=== PATIENT | female | born 1945 | race Caucasian/White ===

== ENCOUNTER 2019-08-16 19:55 | Inpatient (IN) | payer MEDICARE ==
[2019-08-16] MEDS ORDERED: HumaLOG 300 UNITS/3 ML VIAL SC PRN (23:47)
[2019-08-16] MEDS ORDERED: traMADol HCl 50 MG TAB PO PRN (23:47)
[2019-08-17] MEDS: traMADol HCl 50 MG TAB PO SCH ×4 (00:05→17:55)
[2019-08-17] MEDS: Acetaminophen 325 MG TAB PO SCH ×4 (00:06→17:57)
[2019-08-17] MEDS: Cyclobenzaprine 10 MG TAB PO PRN (00:54)
[2019-08-17] MEDS: Ibuprofen 600 MG TAB PO PRN (00:54)
[2019-08-17] MEDS: Levothyroxine Sodium 100 MCG TAB PO SCH (05:37)
[2019-08-17] MEDS ORDERED: FLU VACC TS2019-20(65YR UP)/PF 180 MCG/0.5 ML SYRINGE IM ONE (09:00)
[2019-08-17] MEDS ORDERED: Prevnar 13-Val Conj/PF 0.5 ML SYRINGE IM ONE (09:00)
[2019-08-17] MEDS: Gabapentin 100 MG CAP PO SCH ×3 (09:16→21:31)
[2019-08-17] MEDS: Metoprolol Tartrate 25 MG TAB PO SCH ×2 (09:16→21:31)
[2019-08-17] MEDS: Carbidopa/Levodopa 25-100 mg Tablet PO SCH ×3 (09:16→21:31)
[2019-08-17] MEDS: Senokot S 8.6-50 MG TAB PO SCH ×2 (09:16→21:31)
[2019-08-17] MEDS: Enoxaparin Sodium 40 MG/0.4 ML SYRINGE SC SCH (09:17)
[2019-08-17] MEDS: Aspirin Chewable 81 MG TAB PO SCH (09:17)
[2019-08-17] MEDS ORDERED: cefTRIAXone\\ROCEPHIN 1 GM VIAL IVPB SCH (20:00)
[2019-08-17] MEDS: cefTRIAXone\\ROCEPHIN 1 GM in Sodium Chloride 0.9% 100 ML IVPB SCH (21:30)
[2019-08-17] MEDS: Carbidopa/Levodopa CR 50-200 mg Tablet PO SCH (21:31)
[2019-08-18] MEDS: Acetaminophen 325 MG TAB PO SCH ×4 (00:07→17:18)
[2019-08-18] MEDS: traMADol HCl 50 MG TAB PO SCH ×4 (00:08→17:34)
[2019-08-18] MEDS: Levothyroxine Sodium 100 MCG TAB PO SCH (05:33)
[2019-08-18 05:35] LABS: Hemoglobin 10.7 g/dL (12.0-16.0); Platelet Count 218 thou/uL (130-400)
[2019-08-18] MEDS: Gabapentin 100 MG CAP PO SCH ×3 (08:39→20:55)
[2019-08-18] MEDS: Metoprolol Tartrate 25 MG TAB PO SCH ×2 (08:39→20:56)
[2019-08-18] MEDS: Senokot S 8.6-50 MG TAB PO SCH ×2 (08:39→20:55)
[2019-08-18] MEDS: Aspirin Chewable 81 MG TAB PO SCH (08:39)
[2019-08-18] MEDS: Carbidopa/Levodopa 25-100 mg Tablet PO SCH ×3 (08:39→20:56)
[2019-08-18] MEDS: Enoxaparin Sodium 40 MG/0.4 ML SYRINGE SC SCH (08:40)
[2019-08-18] MEDS: cefTRIAXone\\ROCEPHIN 1 GM in Sodium Chloride 0.9% 100 ML IVPB SCH (20:53)
[2019-08-18] MEDS: Carbidopa/Levodopa CR 50-200 mg Tablet PO SCH (20:55)
[2019-08-19] MEDS: traMADol HCl 50 MG TAB PO SCH ×5 (00:05→23:42)
[2019-08-19] MEDS: Acetaminophen 325 MG TAB PO SCH ×5 (00:05→23:42)
[2019-08-19] MEDS: Levothyroxine Sodium 100 MCG TAB PO SCH (05:22)
[2019-08-19] MEDS: Gabapentin 100 MG CAP PO SCH ×3 (09:12→21:08)
[2019-08-19] MEDS: Aspirin Chewable 81 MG TAB PO SCH (09:12)
[2019-08-19] MEDS: Metoprolol Tartrate 25 MG TAB PO SCH ×2 (09:12→21:08)
[2019-08-19] MEDS: Carbidopa/Levodopa 25-100 mg Tablet PO SCH ×3 (09:12→21:08)
[2019-08-19] MEDS: Senokot S 8.6-50 MG TAB PO SCH ×2 (09:12→21:08)
[2019-08-19] MEDS: Enoxaparin Sodium 40 MG/0.4 ML SYRINGE SC SCH (09:13)
[2019-08-19] MEDS: Cyclobenzaprine 10 MG TAB PO PRN (09:48)
[2019-08-19] MEDS: Milk Of Magnesia 30 ML UDCUP PO PRN (09:49)
[2019-08-19] MEDS: cefTRIAXone\\ROCEPHIN 1 GM in Sodium Chloride 0.9% 100 ML IVPB SCH (21:08)
[2019-08-19] MEDS: Carbidopa/Levodopa CR 50-200 mg Tablet PO SCH (21:08)
[2019-08-20] MEDS: Acetaminophen 325 MG TAB PO SCH ×3 (05:27→17:55)
[2019-08-20] MEDS: traMADol HCl 50 MG TAB PO SCH ×3 (05:28→17:54)
[2019-08-20] MEDS: Levothyroxine Sodium 100 MCG TAB PO SCH (05:28)
[2019-08-20 06:09] LABS: Hemoglobin 11.1 g/dL (12.0-16.0); Platelet Count 252 thou/uL (130-400)
[2019-08-20] MEDS: Metoprolol Tartrate 25 MG TAB PO SCH ×2 (09:10→21:12)
[2019-08-20] MEDS: Cyclobenzaprine 10 MG TAB PO PRN (09:10)
[2019-08-20] MEDS: Gabapentin 100 MG CAP PO SCH ×3 (09:11→21:12)
[2019-08-20] MEDS: Carbidopa/Levodopa 25-100 mg Tablet PO SCH ×3 (09:11→21:12)
[2019-08-20] MEDS: Aspirin Chewable 81 MG TAB PO SCH (09:11)
[2019-08-20] MEDS: Enoxaparin Sodium 40 MG/0.4 ML SYRINGE SC SCH (09:11)
[2019-08-20] MEDS: Senokot S 8.6-50 MG TAB PO SCH ×2 (09:11→21:11)
[2019-08-20] MEDS: cefTRIAXone\\ROCEPHIN 1 GM in Sodium Chloride 0.9% 100 ML IVPB SCH (21:09)
[2019-08-20] MEDS: Carbidopa/Levodopa CR 50-200 mg Tablet PO SCH (21:11)
[2019-08-20] MEDS: Ibuprofen 600 MG TAB PO PRN (21:52)
[2019-08-21] MEDS: traMADol HCl 50 MG TAB PO SCH ×4 (00:19→18:34)
[2019-08-21] MEDS: Acetaminophen 325 MG TAB PO SCH ×4 (00:21→18:35)
[2019-08-21] MEDS: Levothyroxine Sodium 100 MCG TAB PO SCH (05:40)
[2019-08-21] MEDS: Senokot S 8.6-50 MG TAB PO SCH ×2 (08:16→21:03)
[2019-08-21] MEDS: Gabapentin 100 MG CAP PO SCH ×3 (08:16→21:03)
[2019-08-21] MEDS: Metoprolol Tartrate 25 MG TAB PO SCH ×2 (08:16→21:04)
[2019-08-21] MEDS: Cyclobenzaprine 10 MG TAB PO PRN (08:16)
[2019-08-21] MEDS: Carbidopa/Levodopa 25-100 mg Tablet PO SCH ×3 (08:16→21:04)
[2019-08-21] MEDS: Enoxaparin Sodium 40 MG/0.4 ML SYRINGE SC SCH (08:17)
[2019-08-21] MEDS: Aspirin Chewable 81 MG TAB PO SCH (08:17)
[2019-08-21] MEDS: Carbidopa/Levodopa CR 50-200 mg Tablet PO SCH (21:04)
[2019-08-21] MEDS: cefTRIAXone\\ROCEPHIN 1 GM in Sodium Chloride 0.9% 100 ML IVPB SCH (21:05)
[2019-08-22] MEDS: traMADol HCl 50 MG TAB PO SCH ×4 (00:17→17:47)
[2019-08-22] MEDS: Acetaminophen 325 MG TAB PO SCH ×4 (00:17→17:47)
[2019-08-22 04:50] LABS: Hemoglobin 10.9 g/dL (12.0-16.0); Platelet Count 319 thou/uL (130-400)
[2019-08-22] MEDS: Levothyroxine Sodium 100 MCG TAB PO SCH (05:11)
[2019-08-22] MEDS: Gabapentin 100 MG CAP PO SCH ×4 (09:20→23:20)
[2019-08-22] MEDS: Senokot S 8.6-50 MG TAB PO SCH ×3 (09:20→23:20)
[2019-08-22] MEDS: Carbidopa/Levodopa 25-100 mg Tablet PO SCH ×4 (09:20→23:18)
[2019-08-22] MEDS: Aspirin Chewable 81 MG TAB PO SCH (09:21)
[2019-08-22] MEDS: Enoxaparin Sodium 40 MG/0.4 ML SYRINGE SC SCH (09:21)
[2019-08-22] MEDS: Metoprolol Tartrate 25 MG TAB PO SCH ×3 (09:21→23:20)
[2019-08-22] MEDS: Cyclobenzaprine 10 MG TAB PO PRN (09:21)
[2019-08-22] MEDS: Carbidopa/Levodopa CR 50-200 mg Tablet PO SCH ×2 (21:25→23:20)
[2019-08-23] MEDS: traMADol HCl 50 MG TAB PO SCH ×5 (00:19→23:17)
[2019-08-23] MEDS: Acetaminophen 325 MG TAB PO SCH ×5 (00:20→23:17)
[2019-08-23] MEDS ORDERED: Acetaminophen 325 MG TAB ONE (05:36)
[2019-08-23] MEDS ORDERED: traMADol HCl 50 MG TAB ONE (05:36)
[2019-08-23] MEDS ORDERED: Levothyroxine Sodium 100 MCG TAB ONE (05:37)
[2019-08-23] MEDS: Levothyroxine Sodium 100 MCG TAB PO SCH (06:00)
[2019-08-23] MEDS: Aspirin Chewable 81 MG TAB PO SCH (08:50)
[2019-08-23] MEDS: Enoxaparin Sodium 40 MG/0.4 ML SYRINGE SC SCH (08:50)
[2019-08-23] MEDS: Metoprolol Tartrate 25 MG TAB PO SCH ×2 (08:50→21:33)
[2019-08-23] MEDS: Gabapentin 100 MG CAP PO SCH ×3 (08:50→21:33)
[2019-08-23] MEDS: Carbidopa/Levodopa 25-100 mg Tablet PO SCH ×3 (08:50→21:33)
[2019-08-23] MEDS: Senokot S 8.6-50 MG TAB PO SCH ×2 (08:50→21:33)
[2019-08-23] MEDS: Carbidopa/Levodopa CR 50-200 mg Tablet PO SCH (21:33)
[2019-08-24] MEDS: Bisacodyl 5 MG TAB PO PRN (05:52)
[2019-08-24] MEDS: traMADol HCl 50 MG TAB PO SCH ×3 (05:54→18:57)
[2019-08-24] MEDS: Acetaminophen 325 MG TAB PO SCH ×3 (05:54→18:56)
[2019-08-24] MEDS: Levothyroxine Sodium 100 MCG TAB PO SCH (05:56)
[2019-08-24 05:57] LABS: Platelet Count 391 thou/uL (130-400)
[2019-08-24] MEDS: Metoprolol Tartrate 25 MG TAB PO SCH ×2 (09:31→21:05)
[2019-08-24] MEDS: Gabapentin 100 MG CAP PO SCH ×3 (09:31→21:05)
[2019-08-24] MEDS: Enoxaparin Sodium 40 MG/0.4 ML SYRINGE SC SCH (09:31)
[2019-08-24] MEDS: Aspirin Chewable 81 MG TAB PO SCH (09:31)
[2019-08-24] MEDS: Senokot S 8.6-50 MG TAB PO SCH ×2 (09:31→21:05)
[2019-08-24] MEDS: Carbidopa/Levodopa 25-100 mg Tablet PO SCH ×3 (09:32→21:05)
[2019-08-24] MEDS: Carbidopa/Levodopa CR 50-200 mg Tablet PO SCH (21:05)
[2019-08-24] MEDS: Ibuprofen 600 MG TAB PO PRN (21:09)
[2019-08-25] MEDS: traMADol HCl 50 MG TAB PO SCH ×4 (00:14→18:09)
[2019-08-25] MEDS: Acetaminophen 325 MG TAB PO SCH ×4 (00:14→18:09)
[2019-08-25] MEDS: Levothyroxine Sodium 100 MCG TAB PO SCH (05:49)
[2019-08-25] MEDS: Gabapentin 100 MG CAP PO SCH ×3 (09:42→20:45)
[2019-08-25] MEDS: Metoprolol Tartrate 25 MG TAB PO SCH ×2 (09:42→20:46)
[2019-08-25] MEDS: Senokot S 8.6-50 MG TAB PO SCH ×2 (09:42→20:45)
[2019-08-25] MEDS: Enoxaparin Sodium 40 MG/0.4 ML SYRINGE SC SCH (09:42)
[2019-08-25] MEDS: Carbidopa/Levodopa 25-100 mg Tablet PO SCH ×3 (09:43→20:45)
[2019-08-25] MEDS: Aspirin Chewable 81 MG TAB PO SCH (09:43)
[2019-08-25] MEDS: Carbidopa/Levodopa CR 50-200 mg Tablet PO SCH (20:45)
[2019-08-26] MEDS: Acetaminophen 325 MG TAB PO SCH ×4 (00:16→18:04)
[2019-08-26] MEDS: traMADol HCl 50 MG TAB PO SCH ×4 (00:17→18:04)
[2019-08-26 06:00] LABS: Hemoglobin 12.5 g/dL (12.0-16.0); Platelet Count 436 thou/uL (130-400)
[2019-08-26] MEDS: Levothyroxine Sodium 100 MCG TAB PO SCH (06:02)
[2019-08-26] MEDS: Enoxaparin Sodium 40 MG/0.4 ML SYRINGE SC SCH (09:47)
[2019-08-26] MEDS: Metoprolol Tartrate 25 MG TAB PO SCH ×2 (09:48→20:56)
[2019-08-26] MEDS: Senokot S 8.6-50 MG TAB PO SCH ×2 (09:48→20:55)
[2019-08-26] MEDS: Carbidopa/Levodopa 25-100 mg Tablet PO SCH ×3 (09:48→20:55)
[2019-08-26] MEDS: Gabapentin 100 MG CAP PO SCH ×3 (09:48→20:55)
[2019-08-26] MEDS: Aspirin Chewable 81 MG TAB PO SCH (09:48)
[2019-08-26] MEDS: Bisacodyl 5 MG TAB PO PRN (09:52)
[2019-08-26] MEDS: Carbidopa/Levodopa CR 50-200 mg Tablet PO SCH (20:55)
[2019-08-26] MEDS: Ibuprofen 600 MG TAB PO PRN (20:56)
[2019-08-27] MEDS: traMADol HCl 50 MG TAB PO SCH ×4 (00:12→17:55)
[2019-08-27] MEDS: Acetaminophen 325 MG TAB PO SCH ×4 (00:12→17:56)
[2019-08-27] MEDS: Levothyroxine Sodium 100 MCG TAB PO SCH (05:49)
[2019-08-27] MEDS: Aspirin Chewable 81 MG TAB PO SCH (09:20)
[2019-08-27] MEDS: Metoprolol Tartrate 25 MG TAB PO SCH ×2 (09:20→21:17)
[2019-08-27] MEDS: Enoxaparin Sodium 40 MG/0.4 ML SYRINGE SC SCH (09:20)
[2019-08-27] MEDS: Milk Of Magnesia 30 ML UDCUP PO PRN (09:20)
[2019-08-27] MEDS: Senokot S 8.6-50 MG TAB PO SCH ×2 (09:20→21:17)
[2019-08-27] MEDS: Gabapentin 100 MG CAP PO SCH ×3 (09:20→21:17)
[2019-08-27] MEDS: Carbidopa/Levodopa 25-100 mg Tablet PO SCH ×3 (09:21→21:17)
[2019-08-27] MEDS: Carbidopa/Levodopa CR 50-200 mg Tablet PO SCH (21:16)
[2019-08-28] MEDS: traMADol HCl 50 MG TAB PO SCH ×4 (00:02→17:25)
[2019-08-28] MEDS: Acetaminophen 325 MG TAB PO SCH ×4 (00:03→17:26)
[2019-08-28] MEDS: Levothyroxine Sodium 100 MCG TAB PO SCH (05:36)
[2019-08-28 05:51] LABS: Hemoglobin 11.9 g/dL (12.0-16.0); Platelet Count 444 thou/uL (130-400)
[2019-08-28] MEDS: Aspirin Chewable 81 MG TAB PO SCH (09:15)
[2019-08-28] MEDS: Carbidopa/Levodopa 25-100 mg Tablet PO SCH ×3 (09:15→20:56)
[2019-08-28] MEDS: Senokot S 8.6-50 MG TAB PO SCH ×2 (09:15→20:57)
[2019-08-28] MEDS: Metoprolol Tartrate 25 MG TAB PO SCH ×2 (09:15→20:56)
[2019-08-28] MEDS: Polyethylene Glycol 3350 17 GM Packet PO SCH (09:15)
[2019-08-28] MEDS: Gabapentin 100 MG CAP PO SCH ×3 (09:15→20:55)
[2019-08-28] MEDS: Enoxaparin Sodium 40 MG/0.4 ML SYRINGE SC SCH (09:16)
[2019-08-28] MEDS: Carbidopa/Levodopa CR 50-200 mg Tablet PO SCH (20:56)
[2019-08-29] MEDS: traMADol HCl 50 MG TAB PO SCH ×5 (00:13→23:41)
[2019-08-29] MEDS: Acetaminophen 325 MG TAB PO SCH ×5 (00:14→23:42)
[2019-08-29] MEDS: Levothyroxine Sodium 100 MCG TAB PO SCH (05:19)
[2019-08-29] MEDS: Gabapentin 100 MG CAP PO SCH ×3 (08:29→21:43)
[2019-08-29] MEDS: Metoprolol Tartrate 25 MG TAB PO SCH ×2 (08:29→21:45)
[2019-08-29] MEDS: Aspirin Chewable 81 MG TAB PO SCH (08:29)
[2019-08-29] MEDS: Carbidopa/Levodopa 25-100 mg Tablet PO SCH ×3 (08:29→21:45)
[2019-08-29] MEDS: Polyethylene Glycol 3350 17 GM Packet PO SCH (08:30)
[2019-08-29] MEDS: Senokot S 8.6-50 MG TAB PO SCH ×3 (08:31→21:43)
[2019-08-29] MEDS: Enoxaparin Sodium 40 MG/0.4 ML SYRINGE SC SCH (08:31)
[2019-08-29] MEDS: Carbidopa/Levodopa CR 50-200 mg Tablet PO SCH (21:44)
[2019-08-30] MEDS: traMADol HCl 50 MG TAB PO SCH ×3 (05:12→18:08)
[2019-08-30] MEDS: Acetaminophen 325 MG TAB PO SCH ×3 (05:13→18:09)
[2019-08-30] MEDS: Levothyroxine Sodium 100 MCG TAB PO SCH (05:13)
[2019-08-30 05:44] LABS: Hemoglobin 11.6 g/dL (12.0-16.0); Platelet Count 441 thou/uL (130-400)
[2019-08-30] MEDS: Polyethylene Glycol 3350 17 GM Packet PO SCH (09:17)
[2019-08-30] MEDS: Enoxaparin Sodium 40 MG/0.4 ML SYRINGE SC SCH (09:17)
[2019-08-30] MEDS: Carbidopa/Levodopa 25-100 mg Tablet PO SCH ×3 (09:18→21:02)
[2019-08-30] MEDS: Aspirin Chewable 81 MG TAB PO SCH (09:18)
[2019-08-30] MEDS: Senokot S 8.6-50 MG TAB PO SCH ×2 (09:18→21:02)
[2019-08-30] MEDS: Metoprolol Tartrate 25 MG TAB PO SCH ×2 (09:18→21:02)
[2019-08-30] MEDS: Gabapentin 100 MG CAP PO SCH ×3 (09:18→21:02)
[2019-08-30 12:01] VITALS: BMI 25.2
[2019-08-30] MEDS: Carbidopa/Levodopa CR 50-200 mg Tablet PO SCH (21:02)
[2019-08-31] MEDS: Acetaminophen 325 MG TAB PO SCH ×4 (00:49→17:42)
[2019-08-31] MEDS: traMADol HCl 50 MG TAB PO SCH ×4 (00:50→17:41)
[2019-08-31] MEDS: Levothyroxine Sodium 100 MCG TAB PO SCH (06:00)
[2019-08-31] MEDS: cloNIDine 0.1 MG TAB PO PRN (06:01)
[2019-08-31] MEDS: Polyethylene Glycol 3350 17 GM Packet PO SCH (09:16)
[2019-08-31] MEDS: Enoxaparin Sodium 40 MG/0.4 ML SYRINGE SC SCH (09:17)
[2019-08-31] MEDS: Carbidopa/Levodopa 25-100 mg Tablet PO SCH ×3 (09:18→22:35)
[2019-08-31] MEDS: Gabapentin 100 MG CAP PO SCH ×3 (09:18→22:35)
[2019-08-31] MEDS: Aspirin Chewable 81 MG TAB PO SCH (09:18)
[2019-08-31] MEDS: Metoprolol Tartrate 25 MG TAB PO SCH ×2 (09:18→22:34)
[2019-08-31] MEDS: Senokot S 8.6-50 MG TAB PO SCH ×2 (09:18→22:34)
[2019-08-31] MEDS: Carbidopa/Levodopa CR 50-200 mg Tablet PO SCH (22:35)
[2019-09-01] MEDS: Acetaminophen 325 MG TAB PO SCH ×5 (00:20→23:53)
[2019-09-01] MEDS: traMADol HCl 50 MG TAB PO SCH ×5 (00:20→23:54)
[2019-09-01 04:48] LABS: Hemoglobin 11.7 g/dL (12.0-16.0); Platelet Count 391 thou/uL (130-400)
[2019-09-01] MEDS: Levothyroxine Sodium 100 MCG TAB PO SCH (04:59)
[2019-09-01] MEDS: Senokot S 8.6-50 MG TAB PO SCH ×2 (09:27→20:52)
[2019-09-01] MEDS: Aspirin Chewable 81 MG TAB PO SCH (09:27)
[2019-09-01] MEDS: Metoprolol Tartrate 25 MG TAB PO SCH ×2 (09:27→20:53)
[2019-09-01] MEDS: Carbidopa/Levodopa 25-100 mg Tablet PO SCH ×3 (09:27→20:53)
[2019-09-01] MEDS: Gabapentin 100 MG CAP PO SCH ×3 (09:28→20:53)
[2019-09-01] MEDS: Polyethylene Glycol 3350 17 GM Packet PO SCH (09:28)
[2019-09-01] MEDS: Enoxaparin Sodium 40 MG/0.4 ML SYRINGE SC SCH (09:31)
[2019-09-01] MEDS: Carbidopa/Levodopa CR 50-200 mg Tablet PO SCH (20:52)
[2019-09-02] MEDS: Acetaminophen 325 MG TAB PO SCH ×3 (05:11→17:52)
[2019-09-02] MEDS: traMADol HCl 50 MG TAB PO SCH ×3 (05:11→17:52)
[2019-09-02] MEDS: Levothyroxine Sodium 100 MCG TAB PO SCH (05:12)
[2019-09-02] MEDS: Carbidopa/Levodopa 25-100 mg Tablet PO SCH ×3 (09:54→20:29)
[2019-09-02] MEDS: Metoprolol Tartrate 25 MG TAB PO SCH ×2 (09:54→20:29)
[2019-09-02] MEDS: Gabapentin 100 MG CAP PO SCH ×3 (09:54→20:29)
[2019-09-02] MEDS: Senokot S 8.6-50 MG TAB PO SCH ×2 (09:54→20:29)
[2019-09-02] MEDS: Aspirin Chewable 81 MG TAB PO SCH (09:54)
[2019-09-02] MEDS: Enoxaparin Sodium 40 MG/0.4 ML SYRINGE SC SCH (09:55)
[2019-09-02] MEDS: Polyethylene Glycol 3350 17 GM Packet PO SCH (09:55)
[2019-09-02] MEDS: Carbidopa/Levodopa CR 50-200 mg Tablet PO SCH (20:29)
[2019-09-03] MEDS: traMADol HCl 50 MG TAB PO SCH ×4 (00:42→17:21)
[2019-09-03] MEDS: Acetaminophen 325 MG TAB PO SCH ×4 (00:43→17:20)
[2019-09-03] MEDS: Levothyroxine Sodium 100 MCG TAB PO SCH (05:28)
[2019-09-03] MEDS: Aspirin Chewable 81 MG TAB PO SCH (09:19)
[2019-09-03] MEDS: Polyethylene Glycol 3350 17 GM Packet PO SCH (09:19)
[2019-09-03] MEDS: Senokot S 8.6-50 MG TAB PO SCH ×2 (09:19→20:33)
[2019-09-03] MEDS: Metoprolol Tartrate 25 MG TAB PO SCH ×2 (09:19→20:33)
[2019-09-03] MEDS: Gabapentin 100 MG CAP PO SCH ×3 (09:19→20:33)
[2019-09-03] MEDS: Enoxaparin Sodium 40 MG/0.4 ML SYRINGE SC SCH (09:19)
[2019-09-03] MEDS: Carbidopa/Levodopa 25-100 mg Tablet PO SCH ×3 (09:19→20:33)
[2019-09-03] MEDS: Carbidopa/Levodopa CR 50-200 mg Tablet PO SCH (20:33)
[2019-09-04] MEDS: Acetaminophen 325 MG TAB PO SCH ×4 (00:17→17:54)
[2019-09-04] MEDS: traMADol HCl 50 MG TAB PO SCH ×4 (00:18→17:56)
[2019-09-04] MEDS: Levothyroxine Sodium 100 MCG TAB PO SCH (06:40)
[2019-09-04] MEDS: Carbidopa/Levodopa 25-100 mg Tablet PO SCH ×3 (08:48→22:19)
[2019-09-04] MEDS: Metoprolol Tartrate 25 MG TAB PO SCH ×2 (08:48→22:19)
[2019-09-04] MEDS: Gabapentin 100 MG CAP PO SCH ×3 (08:48→22:19)
[2019-09-04] MEDS: Enoxaparin Sodium 40 MG/0.4 ML SYRINGE SC SCH (08:48)
[2019-09-04] MEDS: Senokot S 8.6-50 MG TAB PO SCH ×2 (08:48→22:19)
[2019-09-04] MEDS: Polyethylene Glycol 3350 17 GM Packet PO SCH (08:48)
[2019-09-04] MEDS: Aspirin Chewable 81 MG TAB PO SCH (08:48)
[2019-09-04] MEDS: Carbidopa/Levodopa CR 50-200 mg Tablet PO SCH (22:19)
[2019-09-05] MEDS: traMADol HCl 50 MG TAB PO SCH ×4 (00:26→17:44)
[2019-09-05] MEDS: Acetaminophen 325 MG TAB PO SCH ×4 (00:49→17:44)
[2019-09-05] MEDS: Levothyroxine Sodium 100 MCG TAB PO SCH (05:09)
[2019-09-05] MEDS: Polyethylene Glycol 3350 17 GM Packet PO SCH (08:48)
[2019-09-05] MEDS: Aspirin Chewable 81 MG TAB PO SCH (08:48)
[2019-09-05] MEDS: Metoprolol Tartrate 25 MG TAB PO SCH ×2 (08:49→21:49)
[2019-09-05] MEDS: Carbidopa/Levodopa 25-100 mg Tablet PO SCH ×3 (08:49→21:49)
[2019-09-05] MEDS: Senokot S 8.6-50 MG TAB PO SCH ×2 (08:49→21:49)
[2019-09-05] MEDS: Enoxaparin Sodium 40 MG/0.4 ML SYRINGE SC SCH (08:49)
[2019-09-05] MEDS: Gabapentin 100 MG CAP PO SCH ×3 (08:49→21:49)
[2019-09-05] MEDS: Carbidopa/Levodopa CR 50-200 mg Tablet PO SCH (21:49)
[2019-09-06] MEDS: traMADol HCl 50 MG TAB PO SCH ×4 (00:38→17:26)
[2019-09-06] MEDS: Acetaminophen 325 MG TAB PO SCH ×4 (00:38→17:27)
[2019-09-06] MEDS: Levothyroxine Sodium 100 MCG TAB PO SCH (05:09)
[2019-09-06] MEDS: Aspirin Chewable 81 MG TAB PO SCH (09:47)
[2019-09-06] MEDS: Gabapentin 100 MG CAP PO SCH ×3 (09:47→20:50)
[2019-09-06] MEDS: Metoprolol Tartrate 25 MG TAB PO SCH ×2 (09:47→20:50)
[2019-09-06] MEDS: Carbidopa/Levodopa 25-100 mg Tablet PO SCH ×3 (09:48→20:50)
[2019-09-06] MEDS: Enoxaparin Sodium 40 MG/0.4 ML SYRINGE SC SCH (09:48)
[2019-09-06] MEDS: Polyethylene Glycol 3350 17 GM Packet PO SCH (09:48)
[2019-09-06] MEDS: Senokot S 8.6-50 MG TAB PO SCH ×2 (09:48→20:50)
[2019-09-06] MEDS: Ondansetron ODT 4 MG TAB PO PRN (16:27)
[2019-09-06] MEDS: Bisacodyl 5 MG TAB PO PRN (16:29)
[2019-09-06] MEDS: Carbidopa/Levodopa CR 50-200 mg Tablet PO SCH (20:50)
[2019-09-07] MEDS: Acetaminophen 325 MG TAB PO SCH ×4 (00:07→17:21)
[2019-09-07] MEDS: traMADol HCl 50 MG TAB PO SCH ×4 (00:07→17:19)
[2019-09-07] MEDS: Levothyroxine Sodium 100 MCG TAB PO SCH (05:29)
[2019-09-07 05:56] LABS: Hemoglobin 13.1 g/dL (12.0-16.0); Platelet Count 282 thou/uL (130-400)
[2019-09-07 08:00] LABS: Red Blood Cell (RBC) Count 5.12 mill/uL (4.20-5.40); White Blood Cell (WBC) Count 7.8 thou/uL (4.8-10.8)
[2019-09-07 08:01] LABS: Mean Corpuscular Hemoglobin 25.6 pg (27.0-31.0); Mean Corpuscular Volume 85.9 fL (78.0-98.0); Mean Platelet Volume 7.1 fL (7.4-10.4)
[2019-09-07 08:03] LABS: Mean Corpuscular HGB CONC 29.8 g/dL (32.0-36.0)
[2019-09-07 08:48] LABS: Eosinophils 2 % (0-10); Lymphocytes 23 % (21-51); MDiff Complete? YES; Monocytes 9 % (0-10); Neutrophil 66 % (42-75); Ovalocytes SLIGHT = 2-5 cells (100X) (0-1/hpf); Platelet Morphology Comment Appears Adequate
[2019-09-07] MEDS: Metoprolol Tartrate 25 MG TAB PO SCH ×2 (09:33→20:28)
[2019-09-07] MEDS: Enoxaparin Sodium 40 MG/0.4 ML SYRINGE SC SCH (09:33)
[2019-09-07] MEDS: Gabapentin 100 MG CAP PO SCH ×3 (09:33→20:28)
[2019-09-07] MEDS: Carbidopa/Levodopa 25-100 mg Tablet PO SCH ×3 (09:33→20:28)
[2019-09-07] MEDS: Senokot S 8.6-50 MG TAB PO SCH ×2 (09:33→20:28)
[2019-09-07] MEDS: Aspirin Chewable 81 MG TAB PO SCH (09:33)
[2019-09-07] MEDS: Polyethylene Glycol 3350 17 GM Packet PO SCH (09:33)
[2019-09-07] MEDS: Milk Of Magnesia 30 ML UDCUP PO PRN (09:34)
[2019-09-07] MEDS: Carbidopa/Levodopa CR 50-200 mg Tablet PO SCH (20:28)
[2019-09-08] MEDS: traMADol HCl 50 MG TAB PO SCH ×3 (00:36→13:50)
[2019-09-08] MEDS: Acetaminophen 325 MG TAB PO SCH ×3 (00:37→13:48)
[2019-09-08] MEDS: Levothyroxine Sodium 100 MCG TAB PO SCH (05:40)
[2019-09-08] MEDS: Aspirin Chewable 81 MG TAB PO SCH (08:18)
[2019-09-08] MEDS: Gabapentin 100 MG CAP PO SCH ×3 (08:18→21:08)
[2019-09-08] MEDS: Metoprolol Tartrate 25 MG TAB PO SCH ×2 (08:19→21:08)
[2019-09-08] MEDS: Polyethylene Glycol 3350 17 GM Packet PO SCH (08:19)
[2019-09-08] MEDS: Enoxaparin Sodium 40 MG/0.4 ML SYRINGE SC SCH (08:19)
[2019-09-08] MEDS: Senokot S 8.6-50 MG TAB PO SCH ×2 (08:19→21:08)
[2019-09-08] MEDS: Carbidopa/Levodopa 25-100 mg Tablet PO SCH ×3 (08:19→21:08)
[2019-09-08] MEDS: Acetaminophen 325 MG TAB PO PRN (21:06)
[2019-09-08] MEDS: traMADol HCl 50 MG TAB PO PRN (21:07)
[2019-09-08] MEDS: Carbidopa/Levodopa CR 50-200 mg Tablet PO SCH (21:08)
[2019-09-09] MEDS: Levothyroxine Sodium 100 MCG TAB PO SCH (06:00)
[2019-09-09] MEDS: Acetaminophen 325 MG TAB PO PRN ×2 (09:38→21:34)
[2019-09-09] MEDS: traMADol HCl 50 MG TAB PO PRN (09:39)
[2019-09-09] MEDS: Aspirin Chewable 81 MG TAB PO SCH (09:40)
[2019-09-09] MEDS: Enoxaparin Sodium 40 MG/0.4 ML SYRINGE SC SCH (09:40)
[2019-09-09] MEDS: Gabapentin 100 MG CAP PO SCH ×3 (09:40→21:34)
[2019-09-09] MEDS: Carbidopa/Levodopa 25-100 mg Tablet PO SCH ×3 (09:40→21:34)
[2019-09-09] MEDS: Metoprolol Tartrate 25 MG TAB PO SCH ×2 (09:40→21:34)
[2019-09-09] MEDS: Polyethylene Glycol 3350 17 GM Packet PO SCH (09:40)
[2019-09-09] MEDS: Senokot S 8.6-50 MG TAB PO SCH ×2 (09:40→21:34)
[2019-09-09] MEDS: Carbidopa/Levodopa CR 50-200 mg Tablet PO SCH (21:34)
[2019-09-10] MEDS: Levothyroxine Sodium 100 MCG TAB PO SCH (06:53)
[2019-09-10] MEDS: Senokot S 8.6-50 MG TAB PO SCH ×2 (09:26→23:19)
[2019-09-10] MEDS: Aspirin Chewable 81 MG TAB PO SCH (09:26)
[2019-09-10] MEDS: Gabapentin 100 MG CAP PO SCH ×3 (09:26→21:01)
[2019-09-10] MEDS: Metoprolol Tartrate 25 MG TAB PO SCH ×2 (09:26→21:01)
[2019-09-10] MEDS: Carbidopa/Levodopa 25-100 mg Tablet PO SCH ×3 (09:26→21:01)
[2019-09-10] MEDS: Polyethylene Glycol 3350 17 GM Packet PO SCH (09:27)
[2019-09-10] MEDS: Enoxaparin Sodium 40 MG/0.4 ML SYRINGE SC SCH (09:27)
--- NOTE | 2019-09-10 14:13 | HP ---
HISTORY OF PRESENT ILLNESS: The patient is a 74-year-old white female with a multiyear history of insulin-dependent diabetes mellitus type 1 and history of frequent UTIs. The patient recently was treated with urinary tract infection with oral antibiotics. She failed outpatient therapy and apparently had an exacerbation of her UTI with weakness and fell causing multiple fractures. She developed a thoracic fracture at T2, which was evaluated by Neurosurgery as well as a left scapular fracture evaluated by Dr. Calero, orthopedic surgeon and multiple rib fractures. During her hospitalization, she was found to be in atrial fibrillation with rapid ventricular response rate, which required treatment as well. During her acute hospital stay, the patient also is insulin-dependent diabetic and was maintained on her insulin pump. Due to her significant injuries, she required extensive physical and occupational therapy and was deemed stable to be transferred to [facility] on August 16, 2019. To continue physical therapy, occupational therapy, she will continue a TLSO brace for her back when she is ambulatory and a sling p.r.n. for the left scapular fracture. PAST MEDICAL HISTORY: Significant for: 1. History of frequent UTIs. 2. History of type 1 diabetes, insulin dependent. 3. History of atrial fibrillation, not a candidate for anticoagulation. 4. Hypertension. 5. Hypothyroidism. 6. History of Parkinson disease. 7. History of recurrent falls with poor gait and balance secondary to multifactorial issues. PAST SURGICAL HISTORY: Significant for tonsillectomy. MEDICATIONS: The patient's home medications included: 1. Sinemet. 2. She is on an insulin pump. 3. She is on Synthroid. 4. Metoprolol. FAMILY HISTORY: The patient has a family history of cardiac disease and coronary artery disease. SOCIAL HISTORY: The patient resides in her home in [facility] with her . She has grown children, who live in the area. She denies any alcohol, tobacco, or other social drug use. She does have some difficulty with ambulation secondary to dizziness and uses a walker p.r.n. PHYSICAL EXAMINATION: GENERAL: Elderly white female, alert, oriented x3, in no obvious distress other than pain with range of motion of the left shoulder. VITAL SIGNS: Blood pressure was 138/68, respiratory rate was 20, pulse was in the high 80s. HEENT: Atraumatic, normocephalic. Extraocular movements are intact. Pupils are equal, round, reactive to light and accommodation. Oropharynx, mucous membranes are moist. No exudate, discharge, or lesions. NECK: Supple. No masses palpated. No bruits auscultated. CHEST: With decreased breath sounds. HEART: With a regular rate and rhythm with multiple frequent ectopic beats. ABDOMEN: Soft. Bowel sounds positive in all 4 quadrants. EXTREMITIES: There was some tenderness to palpation in the back area, in the mid thoracic and lower thoracic area. There was pain with range of motion of left shoulder in the posterior shoulder area. There were multiple petechiae noted to the skin of both upper and lower extremities. ASSESSMENT AND PLAN: 1. Status post thoracic fracture. The patient will be kept in her back brace as recommended by Neurosurgery with a followup outpatient evaluation with Neurosurgery. 2. Left scapular fracture and multiple rib fractures. The patient will continue range of motion exercises to the left upper extremity as pain tolerates. We will continue the patient to be on tramadol and Tylenol routine and p.r.n. for breakthrough pain. 3. History of atrial fibrillation. The patient was not a candidate for long-term anticoagulation, but due to her mainly bedbound status and the fact that she will be monitored closely. We will place the patient on Lovenox for deep venous thrombosis prophylaxis, which will also help prevent for any embolic events. 4. Hypertension. We will continue the patient on her routine blood pressure medications with clonidine p.r.n. for elevated blood pressure and continue the patient on metoprolol. 5. Hypothyroidism. The patient will continue on levothyroxine 100 mcg daily. 6. Insulin-dependent diabetes mellitus. The patient is on insulin pump. She has a regimen that manages her blood sugar very well. She will continue that with the home dosing. 7. Parkinson disease. The patient will continue on her routine carbidopa/levodopa one tab p.o. t.i.d. and half a tablet q.h.s. 8. Pain, multifactorial due to the fractures above. The patient will continue Flexeril p.r.n. pain 5 mg t.i.d. as well as Tylenol and tramadol p.r.n. and routine to continue her pain control. 9. Disposition. The patient will likely have a prolonged hospital stay due to her multiple comorbidities and her multiple fractures. I expect probably one month or possibly greater of fpc. Order occupational therapy and physical therapy to help the patient with activities of daily living, increased strength, and gait. She is a high risk for recurrent urinary tract infection. We will use a PureWick catheter at night to help with any incontinence and hopefully she will become more ambulatory and would be able to use a bedside commode. We will continue to watch her volume status closely. Job ID: [id number]
[2019-09-10] MEDS: Carbidopa/Levodopa CR 50-200 mg Tablet PO SCH (21:01)
[2019-09-11] MEDS: Levothyroxine Sodium 100 MCG TAB PO SCH (06:20)
[2019-09-11] MEDS: Ibuprofen 600 MG TAB PO PRN (06:20)
[2019-09-11] MEDS: Aspirin Chewable 81 MG TAB PO SCH (09:22)
[2019-09-11] MEDS: Senokot S 8.6-50 MG TAB PO SCH ×2 (09:22→21:42)
[2019-09-11] MEDS: Carbidopa/Levodopa 25-100 mg Tablet PO SCH ×3 (09:22→21:42)
[2019-09-11] MEDS: Enoxaparin Sodium 40 MG/0.4 ML SYRINGE SC SCH (09:23)
[2019-09-11] MEDS: Gabapentin 100 MG CAP PO SCH ×3 (09:23→21:41)
[2019-09-11] MEDS: Metoprolol Tartrate 25 MG TAB PO SCH ×2 (09:23→21:30)
[2019-09-11] MEDS: Polyethylene Glycol 3350 17 GM Packet PO SCH (09:23)
[2019-09-11] MEDS: Carbidopa/Levodopa CR 50-200 mg Tablet PO SCH (21:41)
[2019-09-11] MEDS: traMADol HCl 50 MG TAB PO PRN (21:41)
[2019-09-11] MEDS: Acetaminophen 325 MG TAB PO PRN (21:41)
[2019-09-12] MEDS: Levothyroxine Sodium 100 MCG TAB PO SCH (06:36)
[2019-09-12] MEDS: Metoprolol Tartrate 25 MG TAB PO SCH ×2 (08:46→22:21)
[2019-09-12] MEDS: Gabapentin 100 MG CAP PO SCH ×3 (08:46→22:20)
[2019-09-12] MEDS: Enoxaparin Sodium 40 MG/0.4 ML SYRINGE SC SCH (08:47)
[2019-09-12] MEDS: Carbidopa/Levodopa 25-100 mg Tablet PO SCH ×3 (08:47→22:20)
[2019-09-12] MEDS: Aspirin Chewable 81 MG TAB PO SCH (08:47)
[2019-09-12] MEDS: Polyethylene Glycol 3350 17 GM Packet PO SCH (08:47)
[2019-09-12] MEDS: Senokot S 8.6-50 MG TAB PO SCH ×2 (08:48→22:21)
[2019-09-12] MEDS: traMADol HCl 50 MG TAB PO PRN (17:18)
[2019-09-12] MEDS: Carbidopa/Levodopa CR 50-200 mg Tablet PO SCH (22:20)
[2019-09-12] MEDS: Acetaminophen 325 MG TAB PO PRN (22:20)
[2019-09-13] MEDS: Levothyroxine Sodium 100 MCG TAB PO SCH (06:03)
[2019-09-13] MEDS: Acetaminophen 325 MG TAB PO PRN (07:24)
[2019-09-13] MEDS: Carbidopa/Levodopa 25-100 mg Tablet PO SCH ×3 (08:33→21:56)
[2019-09-13] MEDS: Gabapentin 100 MG CAP PO SCH ×3 (08:33→21:56)
[2019-09-13] MEDS: Metoprolol Tartrate 25 MG TAB PO SCH ×2 (08:33→21:56)
[2019-09-13] MEDS: Polyethylene Glycol 3350 17 GM Packet PO SCH (08:33)
[2019-09-13] MEDS: Senokot S 8.6-50 MG TAB PO SCH ×2 (08:33→21:56)
[2019-09-13] MEDS: Aspirin Chewable 81 MG TAB PO SCH (08:33)
[2019-09-13] MEDS: Enoxaparin Sodium 40 MG/0.4 ML SYRINGE SC SCH (08:34)
[2019-09-13] MEDS: Ondansetron ODT 4 MG TAB PO PRN (10:34)
[2019-09-13] MEDS ORDERED: traMADol HCl 50 MG TAB PO PRN (12:30)
[2019-09-13] MEDS: Carbidopa/Levodopa CR 50-200 mg Tablet PO SCH (21:56)
[2019-09-14] MEDS: Levothyroxine Sodium 100 MCG TAB PO SCH (05:15)
[2019-09-14] MEDS: Carbidopa/Levodopa 25-100 mg Tablet PO SCH ×3 (09:49→21:44)
[2019-09-14] MEDS: Aspirin Chewable 81 MG TAB PO SCH (09:49)
[2019-09-14] MEDS: Senokot S 8.6-50 MG TAB PO SCH ×2 (09:49→21:44)
[2019-09-14] MEDS: Gabapentin 100 MG CAP PO SCH ×3 (09:49→21:44)
[2019-09-14] MEDS: Polyethylene Glycol 3350 17 GM Packet PO SCH (09:50)
[2019-09-14] MEDS: Metoprolol Tartrate 25 MG TAB PO SCH ×2 (09:50→21:43)
[2019-09-14] MEDS: Enoxaparin Sodium 40 MG/0.4 ML SYRINGE SC SCH (09:50)
[2019-09-14] MEDS: Carbidopa/Levodopa CR 50-200 mg Tablet PO SCH (21:45)
[2019-09-15] MEDS: Acetaminophen 325 MG TAB PO PRN (02:49)
[2019-09-15] MEDS: Levothyroxine Sodium 100 MCG TAB PO SCH (05:11)
[2019-09-15] MEDS: Enoxaparin Sodium 40 MG/0.4 ML SYRINGE SC SCH (09:46)
[2019-09-15] MEDS: Polyethylene Glycol 3350 17 GM Packet PO SCH (09:46)
[2019-09-15] MEDS: Carbidopa/Levodopa 25-100 mg Tablet PO SCH ×3 (09:47→21:14)
[2019-09-15] MEDS: Senokot S 8.6-50 MG TAB PO SCH ×2 (09:48→21:14)
[2019-09-15] MEDS: Metoprolol Tartrate 25 MG TAB PO SCH ×2 (09:48→21:14)
[2019-09-15] MEDS: Gabapentin 100 MG CAP PO SCH ×3 (09:48→21:15)
[2019-09-15] MEDS: Aspirin Chewable 81 MG TAB PO SCH (09:48)
[2019-09-15] MEDS: Carbidopa/Levodopa CR 50-200 mg Tablet PO SCH (21:14)
[2019-09-16] MEDS: Levothyroxine Sodium 100 MCG TAB PO SCH (05:19)
[2019-09-16] MEDS: Acetaminophen 325 MG TAB PO PRN (09:09)
[2019-09-16] MEDS: Carbidopa/Levodopa 25-100 mg Tablet PO SCH ×3 (09:09→21:36)
[2019-09-16] MEDS: Metoprolol Tartrate 25 MG TAB PO SCH ×2 (09:09→21:36)
[2019-09-16] MEDS: Gabapentin 100 MG CAP PO SCH ×3 (09:09→21:36)
[2019-09-16] MEDS: Aspirin Chewable 81 MG TAB PO SCH (09:09)
[2019-09-16] MEDS: Senokot S 8.6-50 MG TAB PO SCH ×2 (09:09→21:36)
[2019-09-16] MEDS: Polyethylene Glycol 3350 17 GM Packet PO SCH (09:10)
[2019-09-16] MEDS: Enoxaparin Sodium 40 MG/0.4 ML SYRINGE SC SCH (09:10)
[2019-09-16] MEDS: Carbidopa/Levodopa CR 50-200 mg Tablet PO SCH (21:36)
[2019-09-17] MEDS: Levothyroxine Sodium 100 MCG TAB PO SCH (05:57)
[2019-09-17] MEDS: Senokot S 8.6-50 MG TAB PO SCH ×2 (08:31→21:17)
[2019-09-17] MEDS: Gabapentin 100 MG CAP PO SCH ×3 (08:31→21:12)
[2019-09-17] MEDS: Metoprolol Tartrate 25 MG TAB PO SCH ×2 (08:31→21:12)
[2019-09-17] MEDS: Aspirin Chewable 81 MG TAB PO SCH (08:31)
[2019-09-17] MEDS: Polyethylene Glycol 3350 17 GM Packet PO SCH (08:32)
[2019-09-17] MEDS: Carbidopa/Levodopa 25-100 mg Tablet PO SCH ×3 (08:32→21:11)
[2019-09-17] MEDS: Acetaminophen 325 MG TAB PO PRN (08:32)
[2019-09-17] MEDS: Enoxaparin Sodium 40 MG/0.4 ML SYRINGE SC SCH (08:32)
[2019-09-17] MEDS: Carbidopa/Levodopa CR 50-200 mg Tablet PO SCH (21:11)
[2019-09-18] MEDS: Levothyroxine Sodium 100 MCG TAB PO SCH (05:54)
[2019-09-18] MEDS: Carbidopa/Levodopa 25-100 mg Tablet PO SCH ×3 (09:41→21:07)
[2019-09-18] MEDS: Acetaminophen 325 MG TAB PO PRN (09:41)
[2019-09-18] MEDS: Aspirin Chewable 81 MG TAB PO SCH (09:41)
[2019-09-18] MEDS: Senokot S 8.6-50 MG TAB PO SCH ×2 (09:41→21:07)
[2019-09-18] MEDS: Metoprolol Tartrate 25 MG TAB PO SCH ×2 (09:41→21:07)
[2019-09-18] MEDS: Polyethylene Glycol 3350 17 GM Packet PO SCH (09:41)
[2019-09-18] MEDS: Enoxaparin Sodium 40 MG/0.4 ML SYRINGE SC SCH (09:42)
[2019-09-18] MEDS: Gabapentin 100 MG CAP PO SCH ×3 (09:42→21:06)
[2019-09-18] MEDS: Carbidopa/Levodopa CR 50-200 mg Tablet PO SCH (21:07)
[2019-09-19] MEDS: cloNIDine 0.1 MG TAB PO PRN (06:19)
[2019-09-19] MEDS: Levothyroxine Sodium 100 MCG TAB PO SCH (06:20)
[2019-09-19] MEDS: Aspirin Chewable 81 MG TAB PO SCH (08:37)
[2019-09-19] MEDS: Metoprolol Tartrate 25 MG TAB PO SCH (08:37)
[2019-09-19] MEDS: Acetaminophen 325 MG TAB PO PRN (08:37)
[2019-09-19] MEDS: Polyethylene Glycol 3350 17 GM Packet PO SCH (08:38)
[2019-09-19] MEDS: Senokot S 8.6-50 MG TAB PO SCH (08:38)
[2019-09-19] MEDS: Carbidopa/Levodopa 25-100 mg Tablet PO SCH ×2 (08:38→14:11)
[2019-09-19 17:47] VITALS: BP 133/61; TEMP 98.5
--- NOTE | 2019-09-21 09:50 | DIS ---
DATE OF ADMISSION: 08/16/2019 DATE OF DISCHARGE: 09/19/2019 ADMISSION DIAGNOSES: Status post fall with resultant thoracic vertebral fracture, left scapular fracture and multiple rib fractures. SECONDARY DIAGNOSES: Insulin-dependent diabetes mellitus, hypertension, hypothyroidism, history of atrial fibrillation, and Parkinson disease. PROCEDURES: None. HOSPITAL COURSE: This is a 74-year-old female, who sustained a fall and subsequently developed fractures involving her thoracic spine, left scapula and multiple ribs. She was evaluated at [facility] in [place] by Neurosurgery and Orthopedic Surgery. The patient was stabilized and advised to use a TLSO brace for her back when she is ambulatory and a sling p.r.n. for the left scapular fracture. During her stay there, she did have a complication related to atrial fibrillation with RVR, which was effectively treated. She transitioned to [facility] in [place] to participate with physical therapy and occupational therapy secondary to her deconditioned state and inability to care for herself at home. She was resumed on her usual medications with insulin pump managed by her family members. She has improved enough in her functional status to be able to return home and has been set up with [facility] for further therapy. DISPOSITION: The patient was discharged home to live with family members and will have [facility] for further physical therapy and occupational therapy. She may follow up with Dr. Calero, Orthopedic Surgery and Neurosurgery as advised. DISCHARGE MEDICATIONS: Include; 1. Levothyroxine 100 mcg p.o. daily. 2. Carbidopa/levodopa 25/100 t.i.d. and 50/200 half tablet at bedtime. 3. Clonidine 0.1 mg q.6 hours p.r.n. 4. Cyclobenzaprine 5 mg t.i.d. p.r.n. 5. Motrin 600 mg q.8 hours p.r.n. 6. Insulin pump. 7. Metoprolol tartrate 25 mg b.i.d. 8. Zofran 4 mg q.8 hours p.r.n. 9. Protonix 40 mg daily. 10. MiraLAX 17 g daily. 11. Senokot 1 tab b.i.d. Job ID: [id number] [facility]
== END 2019-09-19 17:40 | disposition home or self-care (01) | DRG 561 ==
LOC: BURMED 19:55
PROVIDERS: ADMIT Family Medicine; ATTEND Family Medicine
DX: S22.009D Unspecified fracture of unspecified thoracic vertebra, subsequent encounter for fracture with routine healing (principal); E10.9 Type 1 diabetes mellitus without complications; Z79.4 Long term (current) use of insulin; I10 Essential (primary) hypertension; E03.9 Hypothyroidism, unspecified; G20 Parkinson's disease; Z90.89 Acquired absence of other organs; S42.102D Fracture of unspecified part of scapula, left shoulder, subsequent encounter for fracture with routine healing; S22.49XD Multiple fractures of ribs, unspecified side, subsequent encounter for fracture with routine healing; W18.30XD Fall on same level, unspecified, subsequent encounter; I48.91 Unspecified atrial fibrillation; Z87.440 Personal history of urinary (tract) infections
CPT/HCPCS: 36415; 36416; 82565; 85014; 85018; 85025; 85049; J0696; J1650; J3490; Q0162

== ENCOUNTER 2019-10-07 19:32 | Emergency (ER) | payer MEDICARE ==
[2019-10-07 20:21] LABS: Hemoglobin 10.1 g/dL (12.0-16.0); Mean Corpuscular HGB CONC 30.5 g/dL (32.0-36.0); Mean Corpuscular Hemoglobin 25.8 pg (27.0-31.0); Mean Corpuscular Volume 84.7 fL (78.0-98.0); Mean Platelet Volume 7.1 fL (7.4-10.4); Platelet Count 280 thou/uL (130-400); RBC Distribution Width 16.6 % (11.5-14.5); Red Blood Cell (RBC) Count 3.92 mill/uL (4.20-5.40); White Blood Cell (WBC) Count 5.2 thou/uL (4.8-10.8)
[2019-10-07 20:28] LABS: ALT (SGPT) Less than 7 U/L (8-55); AST (SGOT) 13 U/L (5-34); Albumin 3.9 g/dL (3.4-4.8); Alkaline Phosphatase 103 U/L (40-110); Anion Gap 14 mmol/L (10-20); BUN (Urea Nitrogen) 23 mg/dL (9.8-20.1); Bilirubin, Total 0.3 mg/dL (0.2-1.2); Calc. Creatinine Clearance 0 mL/min (70-130); Calcium 9.5 mg/dL (7.8-10.44); Carbon Dioxide 24 mmol/L (23-31); Chloride 103 mmol/L (98-107); Estimated GFR-MDRD 57; Globulin 2.7 g/dL (2.4-3.5); Glucose 115 mg/dL (83-110); Potassium 3.8 mmol/L (3.5-5.1); Protein, Total 6.6 g/dL (6.0-8.3); Sodium 137 mmol/L (136-145)
[2019-10-07 20:32] LABS: Bilirubin Small (Negative); Blood, Urine Negative (Negative); Clarity Cloudy (Clear); Glucose, Urine (Dipstick) Negative (Negative); Leukocyte Small (Negative); Nitrite Negative (Negative); Protein, Urine (Dipstick) Trace mg/dL (Neg-Trace)
[2019-10-07 20:41] LABS: Anisocytosis SLIGHT = 6-15 cells (100X) (0-5/hpf); Eosinophils 6 % (0-10); Hypochromia SLIGHT = 6-15 cells (100X) (0-5/hpf); Lymphocytes 25 % (21-51); MDiff Complete? YES; Monocytes 15 % (0-10); Neutrophil 52 % (42-75); Platelet Morphology Comment Appears Adequate
[2019-10-07 20:43] LABS: Bacteria/HPF 2+ HPF (None Seen); RBC/HPF 0-3 HPF (0-3); Squamous Epithelial 0-3 HPF (0-3); WBC/HPF 21-50 HPF (0-3)
[2019-10-07 20:44] LABS: Mucous/LPF 1+ LPF (<2+)
[2019-10-07] MEDS ORDERED: Ampicillin/Sulbactam 3 GM VIAL ONE (21:01)
[2019-10-07] MEDS ORDERED: Sodium Chloride 0.9% 100 ML ONE (21:13)
--- NOTE | 2019-10-07 23:26 | RAD ---
PORTABLE CHEST 10/07/19 An AP portable film at 2003 is compared with an 08/11/19 study. The patient is unable to extend her head out of the upper portions of the film due to a neck fracture . The cardiac size is stable. There are no congestive changes, pleural effusions, or focal pulmonary in filtrates. A prior fracture of the right clavicle is evident. The lungs are clear. A small subcentime ter nodular density in the left mid lung is probably a granuloma. IMPRESSION: No acute thoracic finding. POS: HOME
== END 2019-10-07 22:30 | disposition critical access hospital (66) ==
LOC: BURERS 19:32
DX: N39.0 Urinary tract infection, site not specified (principal); I48.91 Unspecified atrial fibrillation; E11.9 Type 2 diabetes mellitus without complications; G20 Parkinson's disease; E03.9 Hypothyroidism, unspecified; Z79.899 Other long term (current) drug therapy
CPT/HCPCS: 36416; 71045; 80053; 81003; 81015; 83605; 84443; 85025; 87040; 87077; 87086; 87186; 93005; 36415-59; A4353; J0295; J1956; J3490

== ENCOUNTER 2019-10-07 21:46 | Inpatient (IN) | payer MEDICARE ==
[2019-10-08] MEDS ORDERED: Acetaminophen 325 MG TAB PO PRN (02:09)
[2019-10-08] MEDS ORDERED: Ampicillin/Sulbactam 1.5 GM in Sodium Chloride 0.9% 100 ML IVPB SCH (06:00)
[2019-10-08] MEDS ORDERED: Dextrose 5% in Water 1,000 ML IV PRN (09:01)
[2019-10-08] MEDS ORDERED: Dextrose 50% Abboject 50 ML SYRINGE IVP PRN (09:01)
[2019-10-08] MEDS ORDERED: Ibuprofen 600 MG TAB PO PRN (09:54)
[2019-10-08] MEDS ORDERED: Bisacodyl 5 MG TAB PO PRN (09:54)
[2019-10-08] MEDS ORDERED: Cyclobenzaprine 10 MG TAB PO PRN (09:54)
[2019-10-08 10:23] LABS: #Basophils 0.1 thou/uL (0.0-0.2); #Lymphocytes 0.5 thou/uL (1.20-3.40); #Monocytes 0.5 thou/uL (0.11-0.59); #Neutrophils 4.9 thou/uL (1.40-6.50); %Basophils 0.9 % (0.0-1.0); %Eosinophils 0.3 % (0.0-10.0); %Monocytes 7.7 % (0.0-10.0); %Neutrophils 82.1 % (42.0-75.0); Hemoglobin 10.8 g/dL (12.0-16.0); Mean Corpuscular HGB CONC 30.9 g/dL (32.0-36.0); Mean Corpuscular Hemoglobin 26.1 pg (27.0-31.0); Mean Corpuscular Volume 84.5 fL (78.0-98.0); Mean Platelet Volume 7.1 fL (7.4-10.4); Platelet Count 296 thou/uL (130-400); RBC Distribution Width 16.4 % (11.5-14.5); Red Blood Cell (RBC) Count 4.15 mill/uL (4.20-5.40)
[2019-10-08 10:28] LABS: Anion Gap 16 mmol/L (10-20); BUN (Urea Nitrogen) 18 mg/dL (9.8-20.1); Calc. Creatinine Clearance 49 mL/min (70-130); Calcium 9.1 mg/dL (7.8-10.44); Carbon Dioxide 23 mmol/L (23-31); Chloride 101 mmol/L (98-107); Estimated GFR-MDRD 53; Glucose 447 mg/dL (83-110); Potassium 4.2 mmol/L (3.5-5.1); Sodium 136 mmol/L (136-145)
[2019-10-08] MEDS: HumaLOG 300 UNITS/3 ML VIAL SC PRN ×4 (10:37→21:11)
[2019-10-08] MEDS: cefTRIAXone\\ROCEPHIN 1 GM in Sodium Chloride 0.9% 100 ML IVPB SCH (12:00)
[2019-10-08] MEDS: Acetaminophen 325 MG TAB PO SCH ×3 (12:08→23:08)
[2019-10-08] MEDS: Carbidopa/Levodopa 25-100 mg Tablet PO SCH ×2 (16:04→21:10)
[2019-10-08] MEDS ORDERED: Insulin Glargine 15 UNITS in Pre-Filled Syringe 1 EACH SC SCH (21:00)
[2019-10-08] MEDS ORDERED: Lantus 1000 UNITS/10 ML VIAL SC SCH (21:00)
[2019-10-08] MEDS ORDERED: Insulin Glargine 10 UNITS in Pre-Filled Syringe 1 EACH SC SCH (21:00)
[2019-10-08] MEDS: Senokot S 8.6-50 MG TAB PO SCH (21:10)
[2019-10-08] MEDS: Metoprolol Tartrate 25 MG TAB PO SCH (21:10)
[2019-10-08] MEDS: LEVODOPA PO SCH (22:58)
[2019-10-08] MEDS: CARBIDOPA PO SCH (22:58)
[2019-10-08] MEDS: cloNIDine 0.1 MG TAB PO PRN (23:08)
[2019-10-09] MEDS: Acetaminophen 325 MG TAB PO SCH ×3 (05:14→18:46)
[2019-10-09] MEDS: Levothyroxine Sodium 100 MCG TAB PO SCH (05:14)
[2019-10-09 05:54] LABS: #Basophils 0.1 thou/uL (0.0-0.2); #Eosinphils 0.1 thou/uL (0.0-0.7); #Lymphocytes 0.7 thou/uL (1.20-3.40); #Monocytes 0.6 thou/uL (0.11-0.59); #Neutrophils 4.6 thou/uL (1.40-6.50); %Eosinophils 2.1 % (0.0-10.0); %Lymphocytes 11.9 % (21.0-51.0); %Monocytes 9.7 % (0.0-10.0); %Neutrophils 75.4 % (42.0-75.0); Hemoglobin 10.9 g/dL (12.0-16.0); Mean Corpuscular HGB CONC 29.3 g/dL (32.0-36.0); Mean Corpuscular Volume 85.4 fL (78.0-98.0); Mean Platelet Volume 6.8 fL (7.4-10.4); Platelet Count 277 thou/uL (130-400); RBC Distribution Width 16.7 % (11.5-14.5); Red Blood Cell (RBC) Count 4.36 mill/uL (4.20-5.40)
[2019-10-09 06:01] LABS: Anion Gap 18 mmol/L (10-20); BUN (Urea Nitrogen) 18 mg/dL (9.8-20.1); Calc. Creatinine Clearance 55 mL/min (70-130); Calcium 8.8 mg/dL (7.8-10.44); Carbon Dioxide 20 mmol/L (23-31); Chloride 100 mmol/L (98-107); Estimated GFR-MDRD 61; Glucose 392 mg/dL (83-110); Potassium 4.1 mmol/L (3.5-5.1); Sodium 134 mmol/L (136-145)
[2019-10-09] MEDS: Carbidopa/Levodopa 25-100 mg Tablet PO SCH ×3 (09:38→21:09)
[2019-10-09] MEDS: Aspirin Chewable 81 MG TAB PO SCH (09:39)
[2019-10-09] MEDS: Metoprolol Tartrate 25 MG TAB PO SCH ×2 (09:39→21:09)
[2019-10-09] MEDS: HumaLOG 300 UNITS/3 ML VIAL SC PRN ×4 (09:53→21:09)
[2019-10-09 09:57] VITALS: BMI 22.8
[2019-10-09] MEDS ORDERED: Lidocaine 1% PF 5 ML VIAL ONE (12:33)
[2019-10-09] MEDS: Senokot S 8.6-50 MG TAB PO SCH ×2 (12:41→21:11)
[2019-10-09] MEDS: cefTRIAXone\\ROCEPHIN 1 GM in Sodium Chloride 0.9% 100 ML IVPB SCH (12:44)
[2019-10-09] MEDS: cefTRIAXone\\ROCEPHIN 1 GM VIAL IM SCH (12:46)
[2019-10-09] MEDS: Lidocaine 1% PF 5 ML VIAL FS SCH (12:46)
[2019-10-09] MEDS ORDERED: HumaLOG 300 UNITS/3 ML VIAL SC SCH (18:45)
--- NOTE | 2019-10-09 19:36 | HP ---
CHIEF COMPLAINT: Weakness and alteration of mental status. HISTORY OF PRESENT ILLNESS: Ms. Garcia is a 74-year-old female, who has had a multiyear history of insulin-dependent diabetes mellitus type 1 and history of frequent urinary tract infections. She has had several recent infections over the last few months and most frequently was admitted to the [facility] on August 16, 2019, through September 19, 2019, under Dr. rPiscilla Buckley's care. She had apparently suffered a urinary tract infection, a T2 compression fracture , a left scapular fracture after a fall as well as multiple rib fractures and was admitted at [facility]. Prior to her transfer here was evaluated by Neurosurgery and Orthopedic Surgery and was stabilized and advised to use a TLSO brace for back pain when ambulatory and a sling as needed for the left scapular fracture. During her stay there, she had a complication of atrial fibrillation with RVR, which was effectively treated. She then transferred here to participate with physical and occupational therapy secondary to her deconditioned state and inability to care for herself at home. Her insulin pump at that time was managed by her family members and she improved enough in her functional status to be able to return home and was set up with home health for further therapy. However, the patient over the last several days has had a decline in status, much like she usually does when she has urinary tract infection with weakness, increased fall risk and alteration of mental status. In addition, her , who is normally her caregiver was admitted to the hospital the day prior to her ER admission here and the family can no longer take care of her at home. They brought her to our ER here for further evaluation. It does appear that the patient has another urinary tract infection. In addition, she is deconditioned and has decreased ability to ambulate. PAST MEDICAL HISTORY: 1. Frequent UTIs. 2. Type 1 diabetes, insulin dependent since she was in her 30s. 3. Atrial fibrillation. Not a candidate for anticoagulation due to fall history. 4. Hypertension. 5. Hypothyroidism. 6. Parkinson's disease. 7. Recurrent falls with poor gait and balance secondary to multifactorial issues. PAST SURGICAL HISTORY: Tonsillectomy. MEDICATIONS: 1. Clonidine 0.1 mg p.o. q.4 hours p.r.n. 2. Senokot one p.o. b.i.d. 3. Protonix 40 mg daily. 4. Lopressor 25 mg p.o. b.i.d. 5. Synthroid 100 mcg p.o. daily. 6. Motrin 600 mg p.o. q.8 hours p.r.n. 7. Flexeril 5 mg p.o. t.i.d. p.r.n. 8. Carbidopa/levodopa ER one p.o. at bedtime. 9. Carbidopa/levodopa 25/100 one p.o. t.i.d. 10. Dulcolax 10 mg p.o. daily p.r.n. 11. Aspirin 81 mg p.o. daily. 12. Tylenol regular strength 650 mg p.o. q.6 hours. FAMILY HISTORY: The patient has a family history of cardiac disease and coronary artery disease. SOCIAL HISTORY: The patient resides in her home in [facility] with her . She has grown children, who live in the area. Again, her has been recently hospitalized on October 06. She denies alcohol, tobacco, or other social drug use. She in the past has used a walker p.r.n. for ambulation, but has essentially needed this since her most recent discharge. REVIEW OF SYSTEMS: GENERAL: The patient endorses generalized weakness. No focal weakness. No fevers or chills. Increased confusion. HEENT: Denies rhinorrhea, sore throat, or nasal congestion. OPHTHALMOLOGIC: Denies vision changes. CARDIOVASCULAR: Denies chest pain, palpitations, orthopnea, or PND. RESPIRATORY: Denies cough, shortness of breath, wheezing, or hemoptysis. GI: Denies diarrhea, nausea, vomiting, or constipation. MUSCULOSKELETAL: Recent pain from the rib and scapular fractures as well as thoracic fractures. This has been improving. NEUROLOGIC: History of Parkinson's disease with soft voice and denies tremor with medications. No slurring of her speech. Denies vision changes. GENITOURINARY: The patient has had malodorous urine. No gross hematuria. LYMPHATIC: Denies swelling. PHYSICAL EXAMINATION: VITAL SIGNS: Temp 97.8, pulse 99, respirations 18, O2 saturation 93% on room air, and blood pressure 159/74. GENERAL: Well-developed female, alert and oriented to person and place. She sometimes cannot recall the names of medications or recent events, but is a good historian for the most part, speaks in a soft whisper. HEENT: Masklike faces. Normocephalic and atraumatic. Pupils are equal, round , and reactive to light and accommodation, extraocular muscles intact. Nares are patent without discharge. Tongue protrudes in the midline. NECK: Supple without lymphadenopathy, thyromegaly, JVD, or bruit. HEART: Regular rate and rhythm with normal S1 and S2. No murmurs, clicks, rubs , or gallops. LUNGS: Clear to auscultation bilaterally. No crackles or wheezes. No increased work of breathing. ABDOMEN: Positive bowel sounds in all 4 quadrants. Soft, nontender, and nondistended. No masses, guarding, or rebound tenderness. EXTREMITIES: No cyanosis, clubbing, or edema. NEUROLOGIC: Parkinsonian features including the masklike faces and soft voice. Unable to ambulate. Generalized weakness. No obvious tremor. LABORATORY DATA: White count 6.0 with 82% neutrophils and 9% lymphocytes. Sodium 136, potassium 4.2, chloride 101, bicarb 23, BUN 18, creatinine 1.01, glucose 447, and calcium 9.1. Urinalysis significant for trace ketones, small bilirubin, 21 to 50 white cells, 0 to 3 red blood cells and 2+ bacteria, urine and blood cultures are pending. ASSESSMENT/PLAN: 1. Alteration of mental status. This appears to be of infectious nature with urinary tract infection source. We will treat urinary tract infection and hopefully mental status will clear. 2. Generalized weakness. This appears to be multifactorial secondary to a urinary tract infection, Parkinson's disease with recent history of multiple falls with thoracic compression fracture, scapular fracture, and rib fracture. We will order Physical Therapy and Occupational Therapy evaluation as well as case management consult to help with placement as the patient's family will need long-term care for her going forward. 3. Urinary tract infection. I have placed the patient on Rocephin based on her past culture results that have shown resistance to fluoroquinolones and Unasyn, which were started in the ER. I will follow up her urine culture and blood culture results for sensitivities. 4. Insulin-dependent diabetes type 1. The patient's insulin pump has been removed as the family is not able to manage it here. We have ordered Accu-Cheks before meals and at bedtime with a sliding scale moderate lispro correction algorithm. I am placing the patient on basal insulin of 10 units of Lantus. We will adjust this quickly. We will monitor labs frequently. 5. Parkinson's disease. The patient will continue her carbidopa/levodopa. 6. Atrial fibrillation. The patient currently has regular rate and rhythm and is not a candidate for anticoagulation. We will continue on aspirin and her metoprolol. 7. Hypothyroidism. The patient will be continued on her levothyroxine. Her TSH is normal, last checked on the . 8. Prophylaxis. The patient is already on Protonix, so we can continue that. We will place SCDs. 9. Full code. Job ID: [id number] MTDD
[2019-10-09] MEDS ORDERED: Lantus 1000 UNITS/10 ML VIAL SC SCH (21:00)
[2019-10-09] MEDS: LEVODOPA PO SCH (21:11)
[2019-10-09] MEDS: CARBIDOPA PO SCH (21:11)
[2019-10-10] MEDS: Acetaminophen 325 MG TAB PO SCH ×4 (03:15→17:36)
[2019-10-10] MEDS: Levothyroxine Sodium 100 MCG TAB PO SCH (05:44)
[2019-10-10 05:49] LABS: #Basophils 0.1 thou/uL (0.0-0.2); #Eosinphils 0.3 thou/uL (0.0-0.7); #Monocytes 0.8 thou/uL (0.11-0.59); #Neutrophils 4.3 thou/uL (1.40-6.50); %Basophils 1.4 % (0.0-1.0); %Eosinophils 5.3 % (0.0-10.0); %Lymphocytes 15.4 % (21.0-51.0); %Monocytes 12.4 % (0.0-10.0); %Neutrophils 65.6 % (42.0-75.0); Anion Gap 15 mmol/L (10-20); BUN (Urea Nitrogen) 19 mg/dL (9.8-20.1); Calc. Creatinine Clearance 57 mL/min (70-130); Carbon Dioxide 26 mmol/L (23-31); Chloride 102 mmol/L (98-107); Estimated GFR-MDRD 67; Glucose 146 mg/dL (83-110); Hemoglobin 10.9 g/dL (12.0-16.0); Mean Corpuscular HGB CONC 30.7 g/dL (32.0-36.0); Mean Corpuscular Hemoglobin 25.9 pg (27.0-31.0); Mean Corpuscular Volume 84.3 fL (78.0-98.0); Mean Platelet Volume 7.1 fL (7.4-10.4); Platelet Count 282 thou/uL (130-400); Potassium 3.9 mmol/L (3.5-5.1); RBC Distribution Width 16.1 % (11.5-14.5); Red Blood Cell (RBC) Count 4.19 mill/uL (4.20-5.40); Sodium 139 mmol/L (136-145); White Blood Cell (WBC) Count 6.5 thou/uL (4.8-10.8)
[2019-10-10] MEDS: HumaLOG 300 UNITS/3 ML VIAL SC SCH ×3 (09:04→16:27)
[2019-10-10] MEDS: HumaLOG 300 UNITS/3 ML VIAL SC PRN ×2 (09:05→13:39)
[2019-10-10] MEDS: Carbidopa/Levodopa 25-100 mg Tablet PO SCH ×3 (09:06→21:24)
[2019-10-10] MEDS: cloNIDine 0.1 MG TAB PO PRN (09:07)
[2019-10-10] MEDS: Metoprolol Tartrate 25 MG TAB PO SCH ×2 (09:08→21:23)
[2019-10-10] MEDS: Aspirin Chewable 81 MG TAB PO SCH (09:08)
[2019-10-10] MEDS: Senokot S 8.6-50 MG TAB PO SCH ×2 (09:09→21:22)
[2019-10-10] MEDS: cefTRIAXone\\ROCEPHIN 1 GM VIAL IM SCH (11:42)
[2019-10-10] MEDS: cefTRIAXone\\ROCEPHIN 1 GM in Sodium Chloride 0.9% 100 ML IVPB SCH (11:43)
[2019-10-10] MEDS: Lidocaine 1% PF 5 ML VIAL FS SCH (11:44)
[2019-10-10] MEDS ORDERED: Dextrose 5% in Water 1,000 ML IV PRN (18:51)
[2019-10-10] MEDS: Carbidopa/Levodopa CR 50-200 mg Tablet PO SCH (21:25)
[2019-10-10] MEDS: Cephalexin 250 MG CAP PO SCH (21:26)
[2019-10-10] MEDS: Lantus 1000 UNITS/10 ML VIAL SC SCH (21:31)
[2019-10-11] MEDS: Acetaminophen 325 MG TAB PO SCH ×4 (01:07→19:16)
[2019-10-11] MEDS: Levothyroxine Sodium 100 MCG TAB PO SCH (05:35)
[2019-10-11] MEDS: cloNIDine 0.1 MG TAB PO PRN (05:44)
[2019-10-11] MEDS: HumaLOG 300 UNITS/3 ML VIAL SC SCH ×3 (09:35→18:46)
[2019-10-11] MEDS: Cephalexin 250 MG CAP PO SCH ×3 (09:35→22:16)
[2019-10-11] MEDS: Carbidopa/Levodopa 25-100 mg Tablet PO SCH ×3 (09:36→22:15)
[2019-10-11] MEDS: Senokot S 8.6-50 MG TAB PO SCH ×2 (09:36→22:15)
[2019-10-11] MEDS: Aspirin Chewable 81 MG TAB PO SCH (09:36)
[2019-10-11] MEDS: Metoprolol Tartrate 25 MG TAB PO SCH ×2 (09:36→22:16)
[2019-10-11] MEDS: Lidocaine 1% PF 5 ML VIAL FS SCH (13:25)
[2019-10-11] MEDS ORDERED: risperiDONE 0.5 MG TAB PO PRN (19:14)
[2019-10-11] MEDS: Carbidopa/Levodopa CR 50-200 mg Tablet PO SCH (22:15)
[2019-10-11] MEDS: Lantus 1000 UNITS/10 ML VIAL SC SCH (22:17)
[2019-10-11] MEDS: HumaLOG 300 UNITS/3 ML VIAL SC PRN (22:25)
[2019-10-12] MEDS: Acetaminophen 325 MG TAB PO SCH ×5 (00:16→23:24)
[2019-10-12] MEDS: cloNIDine 0.1 MG TAB PO PRN (06:02)
[2019-10-12] MEDS: Levothyroxine Sodium 100 MCG TAB PO SCH (06:03)
[2019-10-12] MEDS: Carbidopa/Levodopa 25-100 mg Tablet PO SCH ×3 (09:38→21:13)
[2019-10-12] MEDS: Metoprolol Tartrate 25 MG TAB PO SCH ×2 (09:38→21:12)
[2019-10-12] MEDS: Cephalexin 250 MG CAP PO SCH ×3 (09:38→21:12)
[2019-10-12] MEDS: Aspirin Chewable 81 MG TAB PO SCH (09:39)
[2019-10-12] MEDS: HumaLOG 300 UNITS/3 ML VIAL SC SCH ×3 (09:39→17:42)
[2019-10-12] MEDS: Senokot S 8.6-50 MG TAB PO SCH ×2 (09:39→21:12)
[2019-10-12] MEDS: HumaLOG 300 UNITS/3 ML VIAL SC PRN ×2 (09:40→12:16)
[2019-10-12] MEDS: Lidocaine 1% PF 5 ML VIAL FS SCH (12:19)
[2019-10-12] MEDS: Lantus 1000 UNITS/10 ML VIAL SC SCH (21:13)
[2019-10-12] MEDS: Carbidopa/Levodopa CR 50-200 mg Tablet PO SCH (22:29)
[2019-10-13] MEDS: Levothyroxine Sodium 100 MCG TAB PO SCH (05:40)
[2019-10-13] MEDS: Acetaminophen 325 MG TAB PO SCH ×2 (05:41→12:52)
[2019-10-13 06:30] VITALS: BP 168/75; TEMP 97.6
[2019-10-13] MEDS: cloNIDine 0.1 MG TAB PO PRN (06:34)
[2019-10-13] MEDS: Carbidopa/Levodopa 25-100 mg Tablet PO SCH (09:27)
[2019-10-13] MEDS: Metoprolol Tartrate 25 MG TAB PO SCH (09:27)
[2019-10-13] MEDS: Cephalexin 250 MG CAP PO SCH (09:27)
[2019-10-13] MEDS: Aspirin Chewable 81 MG TAB PO SCH (09:28)
[2019-10-13] MEDS: Senokot S 8.6-50 MG TAB PO SCH (09:28)
[2019-10-13] MEDS: HumaLOG 300 UNITS/3 ML VIAL SC SCH ×2 (09:30→12:53)
[2019-10-13] MEDS: Lidocaine 1% PF 5 ML VIAL FS SCH (12:42)
--- NOTE | 2019-10-14 03:36 | DIS ---
DATE OF ADMISSION: 10/07/2019 DATE OF DISCHARGE: 10/13/2019 DATE OF TRANSFER: October 13, 2019. ADMISSION DIAGNOSES: 1. Alteration of mental status. 2. Acute cystitis. 3. Generalized weakness, status post recent fall with scapular, ribs, and compression fracture. 4. Parkinson disease, chronic. 5. Hypothyroidism, chronic. 6. Type 1 diabetes, chronic. DISCHARGE DIAGNOSES: 1. Alteration of mental status. 2. Acute cystitis. 3. Generalized weakness, status post recent fall with scapular, ribs, and compression fracture. 4. Parkinson disease, chronic. 5. Hypothyroidism, chronic. 6. Type 1 diabetes, chronic. HISTORY AND PHYSICAL: Please see dictation from the date of admission. HOSPITAL COURSE: Ms. Garcia is a 74-year-old female with a history of Parkinson disease, who suffered a recent fall and completed some skilled rehabilitation at our facility after a short stay at [facility]. The fall resulted in a scapular fracture, a compression fracture of the spine, and some rib fractures. She was put in a TLSO brace, which she discontinued on her own at home when she discharged back. She completed physical and occupational therapy at our facility. Unfortunately, about 2 to 3 days prior to her ER presentation here, she started to exhibit signs that she had exhibited previously. They were suspicious of urinary tract infection as this was correlated with her previous fall. In the emergency department, she did in fact have urinalysis suspicious for infection and was started empirically on Rocephin based on her prior urine cultures and sensitivities. She subsequently grew out E coli that was sensitive to cephalosporins and this was changed to oral Keflex. She will complete a 10-day course of that, so we will need 4 additional days of 500 mg t.i.d. Physical and Occupational Therapy evaluated and treated the patient during her hospitalization. She does have a history of advanced Parkinson disease and did experience some hallucinations and confusion at times, relieved with low dose Risperdal as needed. The patient has a history of type 1 diabetes. She previously had an insulin pump that was managed by her . However, her is no longer able to manage it. The insulin pump was removed and the patient was started on basal insulin with premeal and sliding scale. She is brittle and seems to be doing well on the current regimen. Due to her decline overall and status, the patient is no longer able to reside safely at home. The family has chosen, since she was not approved by her insurance for longterm here to transfer the patient to [facility], and she has been accepted at that facility for long-term care. DISPOSITION: Transfer to nursing facility. CONDITION: Stable. MEDICATIONS: 1. Tylenol 650 mg p.o. q.6 hours and q.4 hours p.r.n. 2. Aspirin 81 mg p.o. daily. 3. Dulcolax 10 mg p.o. daily p.r.n. 4. Sinemet 25/100 one p.o. t.i.d. 5. Sinemet CR 50/200 half a tablet p.o. at 2200 hours. 6. Keflex 500 mg t.i.d. x4 days. 7. Catapres 0.1 mg p.o. q.4 hours p.r.n. 8. Flexeril 5 mg p.o. t.i.d. p.r.n. 9. Motrin 600 mg p.o. q.8 hours p.r.n. 10. Lantus 18 units subcu at bedtime. 11. Humalog at bedtime sliding scale per protocol. 12. Humalog mild sliding scale p.r.n. per protocol. 13. Humalog 8 units subcu t.i.d. with meals. 14. Synthroid 100 mcg p.o. q.a.m. 15. Lopressor 25 mg p.o. b.i.d. 16. Pantoprazole 40 mg p.o. daily. 17. Risperdal 0.25 mg p.o. at bedtime p.r.n. 18. Senokot S 1 p.o. b.i.d. The patient will be followed up at the facility by the accepting physician in approximately 72 hours. Job ID: [id number] MTDD
--- NOTE | 2019-10-16 04:12 | PQF ---
[employer] Validation Consultant [employer] DEISI Caro CLAIRE YORK DO [id number] CLINICAL DOCUMENTATION CLARIFICATION FORM: POST DISCHARGE Addendum to original discharge summary date: 10/13/19 Late entry note date: 10/21/19 DATE: 10/16/2019 ATTN:CLAIRE YORK DO Please exercise your independent, professional judgment in responding to the clarification form. Clinical indicators are provided on the bottom of this form for your review Please check appropriate box(s): [ x ] Encephalopathy: Type: [ x ] Acute [ ] Subacute [ ] Chronic Etiology: [ ] Hypertensive [ ] Metabolic [ x ] Toxic [ ] Unspecified [ x ] in the setting of underlying dementia [ ] Other (please specify) [ ] Transient Alteration of Awareness [ ] Other diagnosis [ ] Unable to determine In addition, please specify: Present on Admission (POA): [x ] Yes [ ] No [ ] Unable to determine For continuity of documentation, please document condition throughout progress notes and discharge summary. Thank You. CLINICAL INDICATORS - SIGNS / SYMPTOMS / LABS Altered mental status - Documented in H&P on 10/07 by CLAIRE YORK DO Frequent UTI - Documented in H&P on 10/07 by CLAIRE YORK DO Parkinson's Disease - Documented in H&P on 10/07 by CLAIRE YORK DO AMS due to infectious nature with UTI source - Documented in H&P on 10/07 by CLAIRE YORK DO We will treat UTI and hopefully mental status will clear - Documented in H&P on 10/07 by CLAIRE YORK DO Did experience some hallucinations and confusion at times - Documented in DS on 10/13 by CLAIRE YORK DO [employer] Recurrent falls with poor gait - Documented in H&P on 10/07 by CLAIRE YORK DO DM type 1 Afib TREATMENTS: Patient will continue her carbidopa/Levodopa - Documented in H&P on 10/07 by CLAIRE YORK DO Started empirically on Rocephin on her prior urine culture - Documented in DS on 10/13 by CLAIRE YORK DO [employer] Validation Consultant [employer] Win[employer] (This form is maintained as a part of the permanent medical record) 2014 [employer]. All Rights Reserved [email or web address]
== END 2019-10-13 13:20 | DRG 559 ==
LOC: BURMED 21:46
PROVIDERS: ADMIT Family Medicine; ATTEND Family Medicine
DX: S42.102D Fracture of unspecified part of scapula, left shoulder, subsequent encounter for fracture with routine healing (principal); G92 Toxic encephalopathy; N39.0 Urinary tract infection, site not specified; Z79.4 Long term (current) use of insulin; E10.9 Type 1 diabetes mellitus without complications; R53.81 Other malaise; I10 Essential (primary) hypertension; E03.9 Hypothyroidism, unspecified; G20 Parkinson's disease; Z90.89 Acquired absence of other organs; Z79.82 Long term (current) use of aspirin; Z79.899 Other long term (current) drug therapy; S22.089D Unspecified fracture of T11-T12 vertebra, subsequent encounter for fracture with routine healing; S22.39XD Fracture of one rib, unspecified side, subsequent encounter for fracture with routine healing; W18.30XD Fall on same level, unspecified, subsequent encounter; I48.91 Unspecified atrial fibrillation; B96.20 Unspecified Escherichia coli [E. coli] as the cause of diseases classified elsewhere
CPT/HCPCS: 36415; 36416; 51701; 71045; 80048; 80053; 81003; 81015; 83605; 84443; 85025; 87040; 87077; 87086; 87186; 93005; 96365; 96375; A4353; J0295; J0696; J1815; J1956; J2001; J3490